=== PATIENT | female | born 1995 | race Two or more races ===

== ENCOUNTER 2017-11-03 15:40 | Emergency (ER) | payer MEDICAID ==
[~2017-11-03] VITALS: Ht 167.6 cm; Wt 67.1 kg
--- NOTE | 2017-11-03 16:00 | NUR ---
PATIENT TO ED DT LOWER BACK PAIN ABDOMINAL PAIN, PER PATIENT SHE IS , HOWEVER SHE DOESNT KNOW THE EXACT NUMBER OF WEEKS. PATIENT DENIES ANY VAGINAL BLEEDING. DENIES BACK PAIN WELL AT THIS TIME TOO. PATIENT IS AFEBRILE. VSS
[2017-11-03] MEDS ORDERED: IV NS 0.9% 1,000 ML BAG IV ONE (17:30)
[2017-11-03] MEDS ORDERED: ACETAMINOPHEN ES 500 MG TABLET ONE (17:50)
[2017-11-03] MEDS: ACETAMINOPHEN 325 MG TABLET PO ONE ×2 (18:11→18:23)
[2017-11-03 18:25] LABS: BASOPHILS # (AUTO) 0.1 /CMM (0.0-0.2); EOSINOPHILS % (AUTO) 0.8 % (0.0-6.0); HEMATOCRIT 34 % (33-45); HEMOGLOBIN 11.3 g/dL (11.5-14.8); LYMPHOCYTES # (AUTO) 1.9 /CMM (0.8-4.8); LYMPHOCYTES % (AUTO) 20.8 % (20.0-44.0); MEAN CORPUSCULAR HGB CONC 34 g/dl (31.0-36.0); MEAN CORPUSCULAR VOLUME 85 fL (82-100); MONOCYTES # (AUTO) 0.5 /CMM (0.1-1.30); MONOCYTES % (AUTO) 5.2 % (2.0-12.0); NEUTROPHILS # (AUTO) 6.7 /CMM (1.8-8.9); NEUTROPHILS % (AUTO) 72.2 % (43.0-81.0); PLATELET COUNT (AUTO) 287 /CMM (150-450); RDW COEFFICIENT OF VARIATION 16.6 (11.5-15.0); RED BLOOD CELL COUNT(AUTO) 3.96 MIL/uL (4.0-5.2); WHITE BLOOD COUNT (AUTO) 9.3 K/uL (4.3-11.0)
[2017-11-03 18:36] LABS: CALCIUM, SERUM 8.8 mg/dL (8.5-10.1); CREATININE 0.7 mg/dL (0.6-1.3); POTASSIUM 3.4 mmol/L (3.5-5.1)
[2017-11-03 18:42] LABS: ALBUMIN 2.9 g/dL (3.4-5.0); BILIRUBIN,DIRECT 0.1 mg/dL (0.0-0.2); BILIRUBIN,TOTAL 0.5 mg/dL (0.2-1.0); TOTAL PROTEIN, SERUM 7.2 g/dL (6.4-8.2)
--- NOTE | 2017-11-03 18:56 | NUR ---
REFUSED TO GIVEN URINE AT THIS TIME
--- NOTE | 2017-11-03 18:57 | NUR ---
STILL UNABLE TO PEE
--- NOTE | 2017-11-03 19:08 | NUR ---
Note snehal in ED - 11/03/17 at 1910 by CHANTELL RECEIVED REPORT FROM NIKOLE FAUST FOR JONATHAN. PT RESTING IN BED WITH NO S/S OF DISTRESS NOTED. WILL CONTINUE TO MONITOR PT.
--- NOTE | 2017-11-03 19:11 | NUR ---
RECEIVED REPORT FROM NIKOLE FAUST FOR JONATHAN. PT RESTING IN BED WITH NO S/S OF DISTRESS NOTED AT THIS TIME. WILL CONTINUE TO MONITOR PT.
--- NOTE | 2017-11-03 19:25 | NUR ---
PT UNABLE TO GIVE URINE SAMPLE AT THIS TIME. MADE AWARE. WILL TRY AGAIN
[2017-11-03] MEDS ORDERED: POTASSIUM CHLORIDE 20 MEQ TAB.PRT.SR PO ONE ×2 (19:30→20:13)
[2017-11-03 20:09] LABS: APPEARANCE,URINE Cloudy (CLEAR); BILIRUBIN,URINE Negative (NEGATIVE); BLOOD, URINE Negative Ery/uL (NEGATIVE); COLOR,URINE Yellow (YELLOW); KETONES,URINE Negative (NEGATIVE); LEUKOCYTE ESTERASE ,URINE Large (NEGATIVE); NITRITE, URINE Positive (NEGATIVE); PROTEIN,URINE Negative (NEGATIVE); UGLUCOSE Negative (NEGATIVE); UROBILINOGEN,URINE 0.2 EU/dL (0.2)
[2017-11-03 20:23] LABS: RBC,URINE 0-2 /HPF (0-2); SQUAMOUS EPITHELIAL CELL,UR Few /HPF (None Seen)
[2017-11-03 20:24] LABS: BACTERIA,URINE 2+ /HPF (None Seen); WBC,URINE 21-50 /HPF (0-3)
[2017-11-03] MEDS ORDERED: CEFTRIAXONE 1 G VIAL IM ONE (21:00)
[2017-11-03] MEDS ORDERED: CEFTRIAXONE 1 G VIAL ONE (21:38)
[2017-11-03] MEDS ORDERED: LIDOCAINE 2% 50 ML MDV IJ ONE (21:39)
[2017-11-03 21:45] VITALS: BP 112/62
== END 2017-11-03 21:52 | disposition home or self-care (01) ==
LOC: ER 15:42
DX: O23.42 Unspecified infection of urinary tract in pregnancy, second trimester (principal); O99.012 Anemia complicating pregnancy, second trimester; O99.282 Endocrine, nutritional and metabolic diseases complicating pregnancy, second trimester; O99.332 Smoking (tobacco) complicating pregnancy, second trimester; O99.322 Drug use complicating pregnancy, second trimester; F19.10 Other psychoactive substance abuse, uncomplicated; F15.10 Other stimulant abuse, uncomplicated; F14.10 Cocaine abuse, uncomplicated; E87.6 Hypokalemia; D64.9 Anemia, unspecified; F10.10 Alcohol abuse, uncomplicated; Y90.9 Presence of alcohol in blood, level not specified; Z3A.24 24 weeks gestation of pregnancy
CPT/HCPCS: 36415; 76856; 80048; 80076; 81001; 85025; 87077; 87086; 87186; 96372; 99285; A4606; J0696; J3490; J7030; Z7610; 81000-TC